=== PATIENT | female | born 1955 | race Caucasian/White ===

== ENCOUNTER → 2018-03-09 10:57 | Outpatient (CLI) | payer BC, SELFPAY ==
[2018-03-09 12:29] LABS: Alanine Aminotransferase 28 U/L (12-78); Albumin Level 3.5 gm/dL (3.4-5.0); Albumin/Globulin Ratio 0.9 (1.1-1.8); Alkaline Phosphatase 118 U/L (46-116); Anion Gap 14.1 mEq/L (5-15); Aspartate Amino Transferase 24 U/L (15-37); Bilirubin,Total 0.6 mg/dL (0.2-1.0); Blood Urea Nitrogen 18 mg/dL (7-18); Calcium 9.2 mg/dL (8.5-10.1); Carbon Dioxide 25 mmol/L (21.0-32.0); Chloride 106 mmol/L (98-107); Chol/HDL Ratio 4.7 (1-3.5); Cholesterol 238 mg/dL (140-200); Creatinine,Serum 0.75 mg/dL (0.55-1.02); Estimated Glomerular Filt Rate 78 ml/min (>60); GFR (African American) 94 ML/MIN (>60); Glucose 110 mg/dL (74-106); HDL Cholesterol 51 mg/dL (29-89); LDL Cholesterol 145 mg/dL (0-130); Potassium 4.1 mmoL/L (3.5-5.1); Sodium 141 mmol/L (136-145); Thyroid Stimulating Hormone 1.95 uIU/ml (0.358-3.740); Total Protein,Serum 7.5 gm/dL (6.4-8.2); Triglycerides 209 mg/dL (30-200); VLDL Cholesterol 42 mg/dL (0-40)
== END ==
PROVIDERS: Visit Provider Nurse Practitioner Family
DX: E03.9 Hypothyroidism, unspecified (principal); E78.2 Mixed hyperlipidemia
CPT/HCPCS: 36415; 80053; 80061; 84443

== ENCOUNTER → 2019-05-30 07:21 | Outpatient (CLI) | payer BC, SELFPAY ==
[2019-05-30 08:26] LABS: Hemoglobin A1C 6.2 % (0.0-7.0)
[2019-05-30 09:06] LABS: Alanine Aminotransferase 25 U/L (12-78); Albumin Level 3.7 gm/dL (3.4-5.0); Alkaline Phosphatase 74 U/L (46-116); Anion Gap 13.1 mEq/L (5-15); Aspartate Amino Transferase 25 U/L (15-37); Bilirubin,Total 0.4 mg/dL (0.2-1.0); Blood Urea Nitrogen 21 mg/dL (7-18); Carbon Dioxide 26 mmol/L (21.0-32.0); Chloride 107 mmol/L (98-107); Chol/HDL Ratio 3.9 (1-3.5); Cholesterol 167 mg/dL (140-200); Creatinine,Serum 1.03 mg/dL (0.55-1.02); Estimated Glomerular Filt Rate 54 ml/min (>60); GFR (African American) 65 ML/MIN (>60); Globulin 3.8 gm/dl (1.3-3.2); Glucose 96 mg/dL (74-106); HDL Cholesterol 43 mg/dL (29-89); LDL Cholesterol 105 mg/dL (0-130); Potassium 4.1 mmoL/L (3.5-5.1); Sodium 142 mmol/L (136-145); Thyroid Stimulating Hormone 4.18 uIU/ml (0.358-3.740); Total Protein,Serum 7.5 gm/dL (6.4-8.2); Triglycerides 97 mg/dL (30-200); VLDL Cholesterol 19 mg/dL (0-40)
== END ==
PROVIDERS: Visit Provider Internal Medicine Adolescent Medicine
DX: E78.2 Mixed hyperlipidemia (principal); E03.9 Hypothyroidism, unspecified; R73.9 Hyperglycemia, unspecified
CPT/HCPCS: 36415; 80053; 80061; 83036; 84443

== ENCOUNTER → 2021-03-23 08:03 | Outpatient (POV) | payer BC, SELFPAY | PROVIDERS: Visit Provider Dermatology | DX: Z00.00 Encounter for general adult medical examination without abnormal findings (principal) ==

== ENCOUNTER 2022-04-01 08:47 | Emergency (ER) | payer BC, SELFPAY ==
[2022-04-01 08:47] VITALS: BP 105/63; PULSE 99; RESP 19; TEMP 36.8; O2SAT 96; BMI 26.1
--- NOTE | 2022-04-01 09:07 | HMH.EDUTC ---
[facility] [place] Disposition Clinical Impression: Encounter for laboratory testing for COVID-19 virus Disposition: Home, Self-Care Condition on Discharge: Good Instructions: DI for COVID-19 (Suspected or Confirmed ), Preventing the Spread of Coronavirus Discharge Instructions Additional Instructions: *Monitor Temp, Over the counter Motrin or Tylenol as directed/as needed Tylenol every 4 hours and Motrin every 6 hours (as long as your family doctor has told you that you can take it) for fever or pain. and straight to ER if unable to lower temp less than 101.0 after medication given Follow up IMMEDIATELY for new or worsening symptoms or no Noticeable improvement over the next 48-72 hours. 911 for difficulty breathing or swallowing You were tested for today for COVID19 your test result should be back in the next 24-48 hours, you may check your results on the [facility] My Health Portal Make sure to take your Vitamins Vit. C Vit D and Zinc if you can take them Referrals: Addie Dubon MD [Primary Care Provider] - As needed Forms: Work/School Release Time of Disposition: 09:10 Medical Decision Making - Otilio Inquiry Pt receiving controlled substance: No Otilio was queried for this patient: No Vital Signs: 04/01/22 08:47 Temperature 98.3 F Temperature Source Oral Pulse Rate [Left Radial] 99 H Respiratory Rate 19 Blood Pressure [Right Arm] 105/63 L Blood Pressure Mean [Right Arm] 77 Blood Pressure Source [Right Arm] Automatic Cuff Blood Pressure Position [Right Arm] Sitting 02 Sat by Pulse Oximetry 96 Oxygen Delivery Method Room Air Orders (Tests/Meds): ORDERS Category Date Time Status Covid-19 Nasal PCR ([facility]) Routine Lab 04/01/22 08:50 Ordered [facility] [place] HPI - General Stated complaint: covid test Time Seen by Provider: 04/01/22 09:07 Mode of Arrival: Ambulatory Source of Information: Patient Limitations: No Limitations Description of Symptoms (Recalled from Triage Doc. by RN): c/o feeling tired and just feeling bad since Monday HEENT Symptoms (Recalled from RN notes): No Resp Symptoms (Recalled from RN notes): No Skin Symptoms (Recalled from RN notes): No MS Symptoms (Recalled from RN notes): No Functional Status (Recalled from RN notes): na - History of Present Illness Provider Complaint: Patient state that she hasnt felt well since Wed States that she has been feeling tired and achy all over so she wanted to come in and get tested for COVID - Related Data Allergies Allergy/AdvReac Type Severity Reaction Status Date / Time No Known Allergies Allergy Unverified 08/29/17 14:47 - Worker's Comp Is this a Worker's Comp case?: No H History - Hepatitis A Screen Attestation statement:: This patient has been screened for Hepatitis A risk factors. I have reviewed the patient's past medical history: Yes ROS Obtained: Yes All systems reviewed & no additional complaints, Yes Systems reviewed as appropriate & no additional complaints - Constitutional Constitutional: Reports system reviewed and no additional complaints, except as docu, Reports body ache, Reports fatigue, Reports fever(s) - ENT Ears, Nose, Mouth, and Throat: Reports system reviewed and no additional complaints, except as docu, Denies nasal congestion, Denies nasal discharge, Denies sore throat - Cardiovascular Cardiovascular: Reports system reviewed and no additional complaints, except as docu - Respiratory Respiratory: Reports system reviewed and no additional complaints, except as docu, Denies cough Physical Exam - General General appearance: alert, in no apparent distress - ENT ENT exam: Present: normal exam, normal oropharynx, mucous membranes moist, TM's normal bilaterally, normal external ear exam - Respiratory Respiratory exam: Present: normal lung sounds bilaterally. Absent: respiratory distress - Cardiovascular Cardiovascular exam: Present: regular rate, normal rhythm. Absent: JVD - Abdominal Exam Ab
[2022-04-01 09:14] VITALS: BP 105/63; PULSE 99; RESP 19; TEMP 36.8; O2SAT 96
== END 2022-04-01 09:15 | disposition home or self-care (01) ==
PROVIDERS: Emergency Provider Nurse Practitioner; PCP Internal Medicine
DX: Z03.89 Encounter for observation for other suspected diseases and conditions ruled out (principal); M79.10 Myalgia, unspecified site; R53.82 Chronic fatigue, unspecified; R50.9 Fever, unspecified; Z20.822 Contact with and (suspected) exposure to COVID-19
CPT/HCPCS: 99213; C9803; G0463; U0003; U0005

== ENCOUNTER 2023-06-24 05:36 | Emergency (ER) | payer BC, SELFPAY ==
[2023-06-24 05:38] VITALS: BP 128/80; PULSE 85; RESP 16; TEMP 36.4; O2SAT 96; BMI 26.6
--- NOTE | 2023-06-24 05:51 | PC.NURSE ---
in room talking with patient at this time.
[2023-06-24 05:57] LABS: Microscopic, Urine URINE MICROSCOPIC (MICROSCOPIC)
[2023-06-24 05:59] LABS: Appearance,Urine CLEAR (Clear); Bilirubin,Urine Negative (Negative); Blood, Urine TRACE-I (Negative); Color,Urine YELLOW (Yellow); Glucose,Urine (UA) Negative (Negative); Ketones,Urine Negative (Negative); Leukocyte Esterase,Urine TRACE (Negative); Nitrate,Urine Negative (Negative); Protein,Urine TRACE (Negative); Specific Gravity, Urine 1.025 (1.005-1.030); Urobilinogen,Urine 0.2 EU/dl (0.2)
--- NOTE | 2023-06-24 06:18 | HMH.EDGENADL ---
Discharge Plan Disposition Patient Disposition: Home, Self-Care Condition: Good Prescriptions Prescriptions: New ondansetron 4 mg tablet,disintegrating 4 mg PO Q8H PRN (Reason: nausea and vomiting) 4 Days Qty: 12 0RF tamsulosin 0.4 mg capsule 0.4 mg PO BID 7 Days Qty: 14 0RF Referrals Follow up/Referrals: Addie Dubon MD [Primary Care Provider] - See instructions Activity Restrictions/Add. Instructions Additional Instructions/Restrictions: You were evaluated in the emergency department today. supervisor properties the medications that have been prescribed at [facility]. Take the ondansetron if needed for nausea or vomiting. Take the tamsulosin as directed to help pass the kidney stone. Urinate into the strainer until your symptoms have resolved and see if you happen to catch the stone when it passes. Follow-up with your primary care provider over the next 3 days. Return to the emergency department for new or worsening symptoms, if your pain becomes severe or persistent and you are unable to tolerate it, please return and we will reevaluate the possibility of needing to be seen by a urologist. Clinical Impressions Clinical Impression: Ureterolithiasis Instructions Patient Instructions: DI for Kidney Stones Discharge ED Provider: Yumiko Hall General Adult HPI <Jenise Albert DO - Last Filed: 06/24/23 07:10> General Chief complaint: Urogenital-Female Stated complaint: poss UTI, Abd pain Time Seen by Provider: 06/24/23 05:44 Mode of Arrival: Ambulatory Source of Information: Patient Limitations: No Limitations Description of Symptoms (Recalled from ER Triage Doc. by RN): Patient reports she has been having UTI like symptoms for 1 week. She attempted to get an appointment with her family doctor yesterday, but there was not an immediate appointment available. Patient reports approximately 11pm last night she began having constant suprapubic pain 5/10 with nausea without emesis. History of Present Illness HPI narrative: This patient is a 67-year-old female who denies significant past medical history presenting to the emergency department for evaluation with concern for UTI. She reports that she has had dysuria and urinary frequency for approximate 1 week. She states usually when she has UTI symptoms, her symptoms will resolve spontaneously, so she tried to wait at home. Her symptoms got acutely worse yesterday, with suprapubic pain and pressure. She states she was up all night going to the bathroom frequently. She tried to call her primary care provider yesterday to be evaluated, but they did not have any appointments. She denies any fevers, chills, back pain, or other concerns. She does note nausea. On further questioning, patient does note that she has had chronically elevated kidney function testing. She states that she has not had any formal diagnosis of kidney issues, and she denies any history of kidney stones. Related Data Previous Rx's Medication Instructions Recorded ondansetron 4 mg disintegrating 4 mg PO Q8H PRN nausea and 06/24/23 tablet vomiting 4 days #12 tabs tamsulosin 0.4 mg capsule 0.4 mg PO BID 7 days #14 caps 06/24/23 Allergies Allergy/AdvReac Type Severity Reaction Status Date / Time No Known Allergies Allergy Verified 06/24/23 06:54 PFS <Jenise Albert DO - Last Filed: 06/24/23 07:10> [facility] Disclaimer: The information contained in this section may have been updated after the patient was seen, as this information can be updated by other users. Social History (Updated 06/24/23 @ 07:10 by Jenise Albert DO) Smoking Status: Never smoker alcohol intake: never current occupational status: retired Travel in the last 8 weeks: None <Jenise Albert DO - Last Filed: 06/24/23 07:10> ROS Obtained: Yes All systems reviewed & no additional complaints except as documented Physical Exam <Jenise Albert DO - Last Filed: 06/24/23 07:10> General General appearance: alert and
[2023-06-24 06:52] LABS: Chloride 107 mmol/L (98-107); Sodium 140 mmol/L (136-145)
[2023-06-24 06:55] LABS: Blood Urea Nitrogen 26 mg/dl (7-17); Calcium 9.4 mg/dl (8.4-10.2); Carbon Dioxide 23 mmol/L (22.0-30.0); Creatinine Clearance Estimated 52 mL/min (50-200); Estimated Glomerular Filt Rate 45 ml/min (>60); GFR (African American) 54 ML/MIN (>60); Glucose 141 mg/dl (74-100)
[2023-06-24 06:58] LABS: Basophils % 0.2 % (0.1-2.0); Eosinophils # 0.1 K/mm3 (0.0-0.4); Eosinophils % 0.5 % (0.1-12.0); Hematocrit 40.6 % (37.0-47.0); Hemoglobin 13.5 g/dL (12.2-16.2); Lymphocytes % 7.9 % (10-50); Mean Corpuscular HGB Conc 33.3 g/dL (31.8-35.4); Mean Corpuscular Hemoglobin 30.6 pg (27.0-31.2); Mean Corpuscular Volume 91.9 fl (81-99); Monocytes # 0.5 K/mm3 (0.1-1.0); Monocytes % 3.8 % (1.7-9.3); Neutrophils # 11.4 K/mm3 (1.8-7.8); Neutrophils % 87.7 % (37.0-80.0); Platelet Count 308 K/mm3 (142-424); Red Blood Count 4.42 M/mm3 (4.20-5.40); Red Cell Distribution Width 13.3 % (11.5-17.5)
[2023-06-24 07:00] LABS: MANUAL DIFFERENTIAL MANUAL DIFFERENTIAL (MANUAL DIFF)
--- NOTE | 2023-06-24 07:05 | CT_ITS ---
PROCEDURE INFORMATION: Exam: CT Abdomen And Pelvis With Contrast Exam date and time: 06/24/2023 7:21 AM Age: 67 years old Clinical indication: Abdominal pain; Localized; Lower; Patient HX: With nausea; Additional info: Lower abd pain TECHNIQUE: Imaging protocol: Computed tomography of the abdomen and pelvis with contrast. Radiation optimization: All CT scans at this facility use at least one of these dose optimization techniques: automated exposure control; mA and/or kV adjustment per patient size (includes targeted exams where dose is matched to clinical indication); or iterative reconstruction. Contrast material: ISOVUE; Contrast volume: 75 ml; Contrast route: IV; REPORTING DATA: Count of CT and Cardiac NM exams in prior 12 months: This patient has received 0 known CTs and 0 known cardiac nuclear medicine studies in the 12 months prior to the current study. COMPARISON: No relevant prior studies available. FINDINGS: Diaphragm: There is a small hiatal hernia. Liver: Normal. No mass. Gallbladder and bile ducts: Multiple gallstones are identified. Pancreas: Normal. No ductal dilation. Spleen: Normal. No splenomegaly. Adrenal glands: Normal. No mass. Kidneys and ureters: There is a 4 mm stone at the right UVJ causing mild to moderate right hydroureteronephrosis. There is a striated nephrogram identified in the right kidney. There is left renal scarring noted. Stomach and bowel: There is no bowel obstruction. There is diverticulosis without evidence of diverticulitis. Appendix: No evidence of appendicitis. Intraperitoneal space: Unremarkable. No free air. No significant fluid collection. Vasculature: There is [id number] atherosclerotic disease. There is no abdominal aortic aneurysm. Lymph nodes: Unremarkable. No enlarged lymph nodes. Urinary bladder: Unremarkable as visualized. Reproductive: Unremarkable as visualized. Bones/joints: Unremarkable. No acute fracture. Soft tissues: Unremarkable. IMPRESSION: 1. Obstructive 4 mm right UVJ stone causing mild to moderate right hydroureteronephrosis. There is a striated nephrogram which can be secondary to pyelonephritis and correlation with urinalysis is recommended. 2. Gallstones. 3. Diverticulosis.
[2023-06-24 07:36] LABS: Lymphocytes % 18 % (10-50); Monocytes % 1 % (2-9); Neutrophils % 81 % (42-76); Total Cells Counted 100
[2023-06-24 07:37] LABS: Platelet Estimate Normal; RBC Morphology Normal
[2023-06-24 07:41] VITALS: BP 137/79; PULSE 65; RESP 18; O2SAT 95
[2023-06-24 08:00] VITALS: BP 120/73; PULSE 61; O2SAT 96
[2023-06-24 08:30] VITALS: BP 132/80; PULSE 64; O2SAT 95
[2023-06-24 08:53] VITALS: BP 145/79; PULSE 63; O2SAT 96
[2023-06-24 08:58] VITALS: BP 145/79; PULSE 62; RESP 18; TEMP 36.8; O2SAT 94
== END 2023-06-24 08:58 | disposition home or self-care (01) ==
PROVIDERS: Emergency Medicine; Emergency Provider Emergency Medicine; PCP Internal Medicine
DX: N13.0 Hydronephrosis with ureteropelvic junction obstruction (principal); N20.1 Calculus of ureter; B96.29 Other Escherichia coli [E. coli] as the cause of diseases classified elsewhere
CPT/HCPCS: 74177; 80048; 81001; 85007; 85025; 87086; 96361; 96374; 96375; 99285; J0131; J2405; Q9967

== ENCOUNTER 2024-04-21 14:17 | Emergency (ER) | payer BC, SELFPAY ==
[2024-04-21 14:25] VITALS: BP 142/98; PULSE 82; RESP 18; TEMP 37.1; O2SAT 96; BMI 25.8
--- NOTE | 2024-04-21 14:35 | EXP.UTC ---
Discharge Plan Disposition Patient Disposition: Home, Self-Care Condition: Good Prescriptions Prescriptions: New Paxlovid 300 mg (150 mg x 2)-100 mg tablets,dose pack See Rx Instructions .ROUTE .COMPLEX Qty: 30 0RF Rx Instructions: take TWO 150 mg tablets of nirmatrelvir with ONE 100 mg tablet of ritonavir twice daily for 5 days benzonatate 100 mg capsule 100 mg PO TIDP PRN (Reason: Cough) Qty: 30 0RF ondansetron 4 mg Tablet,Disintegrating 4 mg PO Q8H PRN (Reason: Nausea) Qty: 12 0RF No Action levothyroxine 75 mcg tablet 75 mcg PO DAILY fluticasone propionate 50 mcg/actuation spray,suspension 1 spray INTRANASAL DAILY ramipril 5 mg capsule 5 mg PO DAILY ezetimibe 10 mg tablet 10 mg PO DAILY fenofibrate 160 mg tablet 160 mg PO DAILY Referrals Follow up/Referrals: Provider,Referral, MD [Primary Care Provider] - See instructions Activity Restrictions/Add. Instructions Additional Instructions/Restrictions: Drink plenty of fluids. Take tylenol for pain or fever. Take the medications as directed. Follow up with your regular doctor. GO TO THE ER FOR ANY WORSENING SYMPTOMS Clinical Impressions Clinical Impression: COVID-19 Instructions Patient Instructions: Coronavirus Disease 2019, Preventing the Spread of Coronavirus Discharge Instructions Print Language Print Language: Irish Discharge ED Provider: Wei Marcos [facility] [place] HPI General Stated complaint: congestion, pos covid test Mode of Arrival: Ambulatory Source of Information: Patient Limitations: No Limitations Time Seen by Provider: 04/21/24 14:35 Description of Symptoms (Recalled from Triage Doc. by RN): PATIENT C/O SINUS CONGESTION, REPORTS A POSITIVE AT HOME COVID TEST HEENT Symptoms (Recalled from RN notes): Yes Resp Symptoms (Recalled from RN notes): No Skin Symptoms (Recalled from RN notes): No MS Symptoms (Recalled from RN notes): No Functional Status (Recalled from RN notes): WNL Related Data Home Medications ?Medication ?Instructions ?Recorded ?Confirmed ezetimibe 10 mg tablet 10 mg PO DAILY 04/21/24 04/21/24 fenofibrate 160 mg tablet 160 mg PO DAILY 04/21/24 04/21/24 fluticasone propionate 50 1 spray intranasal DAILY 04/21/24 04/21/24 mcg/actuation nasal spray,suspension levothyroxine 75 mcg tablet 75 mcg PO DAILY 04/21/24 04/21/24 ramipril 5 mg capsule 5 mg PO DAILY 04/21/24 04/21/24 Previous Rx's ?Medication ?Instructions ?Recorded benzonatate 100 mg capsule 100 mg PO TIDP PRN Cough #30 caps 04/21/24 nirmatrelvir 300 mg (150 mg See Rx Instructions PO .COMPLEX 04/21/24 x2)-ritonavir 100 mg tablet,dose #30 tabs pack (Paxlovid) ondansetron 4 mg disintegrating 4 mg PO Q8H PRN Nausea #12 tabs 04/21/24 tablet Allergies Allergy/AdvReac Type Severity Reaction Status Date / Time No Known Allergies Allergy Verified 06/24/23 06:54 Worker's Comp Is this a Worker's Comp case?: No [facility] Disclaimer: The information contained in this section may have been updated after the patient was seen, as this information can be updated by other users. Medical History (Updated 04/21/24 @ 14:43 by Wei Marcos APRN) Hypothyroid Hyperlipidemia Social History (Updated 06/24/23 @ 07:10 by Jenise Albert DO) Smoking Status: Never smoker alcohol intake: never current occupational status: retired Travel in the last 8 weeks: None ROS Obtained: Yes All systems reviewed & no additional complaints except as documented Constitutional Constitutional: Reports chills and Reports fever(s) Eyes Eyes: Denies eye discharge ENT Ears, Nose, Mouth, and Throat: Reports as per HPI Cardiovascular Cardiovascular: Denies chest pain Respiratory Respiratory: Denies chest congestion and Reports cough Gastrointestinal Gastrointestingal: Reports nausea; Denies abdominal pain, constipation, cramping, diarrhea or vomiting Musculoskeletal Musculoskeletal: Denies arthralgias Integumentary/Breasts Skin/Breast: Denies rash Neurologic Neurologic: Denies paresthesias Physical Exam General General appearance: alert and in no apparent distress Eye Eye exam: Present normal appearance, PERRL and EOMI ENT ENT exam: Present mucous membranes moist and normal external ear exam Expanded ENT Exam External ear exam: Present normal external inspection TM/Canal exam: Bilateral TM: erythema and bulging Nose exam: Absent sinus tenderness Nasal speculum exam: Bilateral: normal Mouth exam: Present normal external inspection; Absent drooling Teeth exam: Present normal inspection Throat exam: Present tonsillar erythema and tonsillomegaly Neck Neck exam: Present normal inspection, full ROM and trachea midline; Absent tenderness, lymphadenopathy or thyromegaly Chest Chest inspection: Present normal inspection and symmetric chest wall rise; Absent tenderness or rash Respiratory Respiratory exam: Present normal lung sounds bilaterally; Absent respiratory distress, wheezes, stridor or accessory muscle use Cardiovascular Cardiovascular exam: Present regular rate, normal rhythm and normal heart sounds Abdominal Exam Abdominal exam: Present soft; Absent distention, tenderness, guarding, rebound or rigidity Extremities Exam Extremities exam: Present normal inspection, full ROM and normal capillary refill; Absent tenderness or calf tenderness Back Exam Back exam: Present normal inspection and full ROM; Absent tenderness Neurological Exam Neurological exam: Present alert and oriented X3 Psychiatric Psychiatric exam: Present normal affect and normal mood Skin Skin exam: Present warm, dry, intact and normal color Lymphatic Lymphatic Findings: no adenopathy Medical Decision Making Medical Records Medical records reviewed: No I reviewed the patient's medical records. Otilio Inquiry Pt receiving controlled substance: No Vital Signs: 04/21/24 14:25 Temperature 98.8 F Temperature Source Oral Pulse Rate [Left Brachial] 82 Respiratory Rate 18 Blood Pressure [Left Arm] 142/98 H Blood Pressure Mean [Left Arm] 112 Blood Pressure Source [Left Arm] Automatic Cuff Blood Pressure Position [Left Arm] Sitting 02 Sat by Pulse Oximetry 96 Oxygen Delivery Method Room Air
[2024-04-21 14:44] VITALS: BP 142/98; PULSE 82; RESP 18; TEMP 37.1; O2SAT 96
== END 2024-04-21 14:46 | disposition home or self-care (01) ==
PROVIDERS: Emergency Provider Nurse Practitioner Family
DX: U07.1 COVID-19 (principal); R09.81 Nasal congestion
CPT/HCPCS: 99212; 99214; G0463

== ENCOUNTER 2024-11-09 11:09 | Outpatient (CLI) | payer BC, SELFPAY ==
--- NOTE | 2024-11-09 | XR_ITS ---
PROCEDURE INFORMATION: Exam: XR Left Hand Exam date and time: 11/09/2024 11:20 AM Age: 69 years old Clinical indication: Other: Swelling of left hand and left wrist pain TECHNIQUE: Imaging protocol: Radiologic exam of the left hand. Views: 3 or more views. COMPARISON: CR XR WRIST LT MIN 3V 11/09/2024 11:20 AM FINDINGS: Bones/joints: There is comminuted intra-articular nondisplaced fracture of the distal radius. Arthritic changes noted mainly at base of the 1st metacarpal at its articulation with the trapezium. Soft tissues: There is soft tissue swelling about the hand and wrist IMPRESSION: Fracture of the left distal radius in
--- NOTE | 2024-11-09 | XR_ITS ---
PROCEDURE INFORMATION: Exam: XR Left Wrist Exam date and time: 11/09/2024 11:20 AM Age: 69 years old Clinical indication: Other: Swelling of left hand and left wrist pain TECHNIQUE: Imaging protocol: Radiologic exam of the left wrist. Views: 3 or more views. COMPARISON: CR XR WRIST LT MIN 3V 11/09/2024 11:20 AM FINDINGS: Bones/joints: There is a nondisplaced intra-articular fracture of the distal radius. There is arthritic change noted at the base of the 1st metacarpal along its articulation with the trapezium. Soft tissues: There is soft tissue swelling about the wrist. IMPRESSION: Fracture of left distal radius
[2024-11-09 11:42] LABS: Basophils % 0.4 % (0.1-2.0); Eosinophils # 0.1 K/mm3 (0.0-0.4); Eosinophils % 1.3 % (0.1-12.0); Hematocrit 40.3 % (37.0-47.0); Hemoglobin 13.3 g/dL (12.2-16.2); Lymphocytes # 1.7 K/mm3 (0.7-4.5); Mean Corpuscular Hemoglobin 29.7 pg (27.0-31.2); Monocytes % 9.5 % (1.7-9.3); Neutrophils # 7.3 K/mm3 (1.8-7.8); Neutrophils % 71.5 % (37.0-80.0); Platelet Count 312 K/mm3 (142-424); Red Blood Count 4.48 M/mm3 (4.20-5.40); Red Cell Distribution Width 13.7 % (11.5-17.5); White Blood Count 10.2 K/mm3 (4.8-10.8)
[2024-11-09 12:20] LABS: Erythrocyte Sedimentation Rate 22 mm/hr (0-30)
[2024-11-09 12:37] LABS: Uric Acid 6.8 mg/dl (2.5-6.2)
[2024-11-09 12:42] LABS: C-Reactive Protein 21.3 mg/L (0-4)
== END 2024-11-09 23:59 | disposition home or self-care (01) ==
LOC: LAB 11:11
PROVIDERS: Visit Provider Nurse Practitioner Family
DX: M79.89 Other specified soft tissue disorders (principal); M25.532 Pain in left wrist
CPT/HCPCS: 36415; 73110; 73130; 84550; 85025; 85651; 86140